=== PATIENT | female | born 1955 | race Caucasian/White ===

== ENCOUNTER 2016-05-20 15:57 | Emergency (ER) | payer BC ==
[2016-05-20] MEDS ORDERED: Sucralfate TAB* 1 GM PO ONE (16:51)
[2016-05-20] MEDS ORDERED: Pantoprazole IV* 40 MG IV ONE (16:51)
[2016-05-20 17:03] LABS: Hematocrit 43 % (35-47); Hemoglobin 14.5 g/dl (12.0-16.0); Mean Corpuscular HGB Conc 33 g/dl (31-36); Mean Corpuscular Hemoglobin 29 pg (27-31); Mean Corpuscular Volume 88 fL (80-97); Mean Platelet Volume 9 um3 (7.4-10.4); Red Blood Count 4.96 10^6/ul (4.0-5.4); Red Cell Distribution Width 13 % (10.5-15); White Blood Count 7.6 10^3/ul (3.5-10.8)
[2016-05-20 17:16] LABS: Albumin 4.4 g/dL (3.2-5.2); BUN/Creatinine Ratio 19.5 (8-20); Calcium 9.7 mg/dL (8.6-10.3); EGFR African American 91.5 (>60); EGFR Non-African American 71.1 (>60); Globulin 2.9 g/dL (2-4); Potassium 3.5 mmol/L (3.5-5.0); Total Bilirubin 0.4 mg/dL (0.2-1.0); Total Protein 7.3 g/dL (6.4-8.9)
--- NOTE | 2016-05-20 17:51 | RAD ---
INDICATION: Chest pain. COMPARISON: Comparison is made with a prior study from January 19, 2009. TECHNIQUE: A portable view of the chest was obtained. FINDINGS: Cardiac and mediastinal contours appear to be within normal limits. The lungs are clear. No pleural effusion is seen. IMPRESSION: NO EVIDENCE FOR ACUTE DISEASE.
[2016-05-20 20:46] VITALS: BP 141/82
--- NOTE | 2016-05-22 00:44 | ED ---
Arabella Berg Matthew, scribed for Timoteo Lopez MD on 05/20/16 at 1642 . Abdominal Pain/Female - HPI Summary HPI Summary: A 61 y/o female presents to the ED with sudden epigastric abdominal pain since 14:30. The pain started while the patient was sitting. The pain is described as stabbing, radiated into the back, lasted for an hour, and rated 6/10 in severity initially and is now 3/10 in severity. The pain started gradually resolving during the ambulance ride to the hospital. The patient took Augmentin and ate a banana an hour prior to the episode. She took two TUMs without relief. The patient denies nausea, vomiting, diarrhea, dysuria, SOB, pedal edema , lightheaded, and fever. - History of Current Complaint Chief Complaint: EDAbdPain Stated Complaint: ABD PAIN Time Seen by Provider: 05/20/16 16:31 Hx Obtained From: Patient ?: No Timing: Constant Severity Initially: Moderate Severity Currently: Mild Pain Intensity: 3 Pain Scale Used: 0-10 Numeric Location: Epigastric Radiates: Yes Radiates to: Back Character: Sharp Alleviating Factor(s): Nothing Associated Signs and Symptoms: Positive: Back Pain. Negative: Fever, Urinary Symptoms, Nausea, Vomiting, Diarrhea Allergies/Adverse Reactions: Allergies Allergy/AdvReac Type Severity Reaction Status Date / Time No Known Allergies Allergy Verified 07/11/14 07:05 Home Medications: Home Medications Albuterol HFA INHALER* [Ventolin HFA Inhaler*] 2 puff INH .Q4-6H PRN 05/20/16 [ History Confirmed 05/20/16] Amoxicillin/Clavulanate TAB* [Augmentin TAB 875*] 875 mg PO BID 05/20/16 [ History Confirmed 05/20/16] DULoxetine DR CAP* [Cymbalta CAP*] 20 mg PO DAILY 05/20/16 [History Confirmed ] FLUoxetine CAP* [PROzac CAP*] 20 mg PO DAILY 05/20/16 [History Confirmed ] Gabapentin CAP(*) [Neurontin 100 mg CAP(*)] 200 mg PO BEDTIME 05/20/16 [History Confirmed 05/20/16] amLODIPine TAB* [Norvasc TAB*] 10 mg PO DAILY 05/20/16 [History Confirmed ] PMH/Surg Hx/FS Hx/Imm Hx Endocrine/Hematology History: Denies: Hx Diabetes Cardiovascular History: Reports: Hx Angina, Hx Hypertension, Hx Valvular Heart Disease Denies: Other Cardiovascular Problems/Disorders Respiratory History: Denies: Hx Asthma, Hx Chronic Obstructive Pulmonary Disease (COPD) Sensory History: Reports: Hx Cataracts - ROSS, Hx Contacts or Glasses - GLASSES Denies: Hx Hearing Aid Opthamlomology History: Reports: Hx Cataracts - ROSS, Hx Contacts or Glasses - GLASSES Neurological History: Denies: Other Neuro Impairments/Disorders Psychiatric History: Reports: Hx Anxiety - ON MEDS, Hx Depression - ON MEDS - Cancer History Hx Chemotherapy: No Hx Radiation Therapy: No - Surgical History Surgery Procedure, Year, and Place: LEFT KNEE, 2007, [facility] Hx Anesthesia Reactions: No Infectious Disease History: No Infectious Disease History: Denies: Traveled Outside the [place] in Last 30 Days - Family History Known Family History: Positive: Hypertension - EKG CHANGE DURING STRESS AT DR OFFICE - Social History Alcohol Use: Daily Alcohol Amount: 1-2 PER DAY Substance Use Type: Reports: None Smoking Status (MU): Former Smoker Type: Cigarettes Amount Used/How Often: 1.5 PACKS A DAY Have You Smoked in the Last Year: No Review of Systems Constitutional: Negative Eyes: Negative ENT: Negative Cardiovascular: Negative Respiratory: Negative Gastrointestinal: Negative Genitourinary: Negative Musculoskeletal: Negative Skin: Negative Neurological: Negative Psychological: Normal All Other Systems Reviewed And Are Negative: Yes Physical Exam Triage Information Reviewed: Yes Vital Signs On Initial Exam: Initial Vitals Temp Pulse Resp BP Pulse Ox 97.8 F 67 18 143/53 97 05/20/16 16:05 05/20/16 16:05 05/20/16 16:05 05/20/16 16:05 05/20/16 16:05 Vital Signs Reviewed: Yes Appearance: Positive: Well-Appearing, No Pain Distress, Obese Skin: Positive: Warm, Skin Color Reflects Adequate Perfusion, Dry Eyes: Positive: EOMI, SAURAV ENT: Positive: Normal ENT inspection Neck: Positive: Supple, Nontender Respiratory/Lung Sounds: Positive: Clear to Auscultation, Breath Sounds Present Cardiovascular: Positive: RRR Abdomen Description: Positive: Nontender, Soft Bowel Sounds: Positive: Present Musculoskeletal: Positive: Normal, Strength/ROM Intact Neurological: Positive: Normal, Sensory/Motor Intact, Alert, Oriented to Person Place, Time Psychiatric: Positive: Normal, Affect/Mood Appropriate - [place] Coma Scale Coma Scale Total: 15 Diagnostics - Vital Signs Vital Signs Temp Pulse Resp BP Pulse Ox 05/20/16 16:05 97.8 F 67 18 143/53 97 - Laboratory Lab Results: Lab Results 05/20/16 05/20/16 05/20/16 Range/Units 16:30 16:30 16:30 WBC 7.6 (3.5-10.8) 10^3/ul RBC 4.96 (4.0-5.4) 10^6/ul Hgb 14.5 (12.0-16.0) g/dl Hct 43 (35-47) % MCV 88 (80-97) fL MCH 29 (27-31) pg MCHC 33 (31-36) g/dl RDW 13 (10.5-15) % Plt Count 321 (150-450) 10^3/ul MPV 9 (7.4-10.4) um3 Neut % (Auto) 69.1 (38-83) % Lymph % (Auto) 22.5 L (25-47) % [place] % (Auto) 5.2 (1-9) % Eos % (Auto) 2.0 (0-6) % Baso % (Auto) 1.2 (0-2) % Absolute Neuts (auto) 5.2 (1.5-7.7) 10^3/ul Absolute Lymphs (auto) 1.7 (1.0-4.8) 10^3/ul Absolute Monos (auto) 0.4 (0-0.8) 10^3/ul Absolute Eos (auto) 0.2 (0-0.6) 10^3/ul Absolute Basos (auto) 0.1 (0-0.2) 10^3/ul Absolute Nucleated RBC 0 10^3/ul Nucleated RBC % 0 Sodium 135 (133-145) mmol/L Potassium 3.5 (3.5-5.0) mmol/L Chloride 102 (101-111) mmol/L Carbon Dioxide 27 (22-32) mmol/L Anion Gap 6 (2-11) mmol/L BUN 16 (6-24) mg/dL Creatinine 0.82 (0.51-0.95) mg/dL Est GFR ( Amer) 91.5 (>60) Est GFR (Non-Af Amer) 71.1 (>60) BUN/Creatinine Ratio 19.5 (8-20) Glucose 101 H (70-100) mg/dL Lactic Acid 1.0 (0.5-2.0) mmol/L Calcium 9.7 (8.6-10.3) mg/dL Total Bilirubin 0.40 (0.2-1.0) mg/dL AST 20 (13-39) U/L ALT 20 (7-52) U/L Alkaline Phosphatase 91 (34-104) U/L Troponin I 0.00 (<0.04) ng/mL Total Protein 7.3 (6.4-8.9) g/dL Albumin 4.4 (3.2-5.2) g/dL Globulin 2.9 (2-4) g/dL Albumin/Globulin Ratio 1.5 (1-3) Lipase 22 (11.0-82.0) U/L 05/20/16 Range/Units 20:45 WBC (3.5-10.8) 10^3/ul RBC (4.0-5.4) 10^6/ul Hgb (12.0-16.0) g/dl Hct (35-47) % MCV (80-97) fL MCH (27-31) pg MCHC (31-36) g/dl RDW (10.5-15) % Plt Count (150-450) 10^3/ul MPV (7.4-10.4) um3 Neut % (Auto) (38-83) % Lymph % (Auto) (25-47) % [place] % (Auto) (1-9) % Eos % (Auto) (0-6) % Baso % (Auto) (0-2) % Absolute Neuts (auto) (1.5-7.7) 10^3/ul Absolute Lymphs (auto) (1.0-4.8) 10^3/ul Absolute Monos (auto) (0-0.8) 10^3/ul Absolute Eos (auto) (0-0.6) 10^3/ul Absolute Basos (auto) (0-0.2) 10^3/ul Absolute Nucleated RBC 10^3/ul Nucleated RBC % Sodium (133-145) mmol/L Potassium (3.5-5.0) mmol/L Chloride (101-111) mmol/L Carbon Dioxide (22-32) mmol/L Anion Gap (2-11) mmol/L BUN (6-24) mg/dL Creatinine (0.51-0.95) mg/dL Est GFR ( Amer) (>60) Est GFR (Non-Af Amer) (>60) BUN/Creatinine Ratio (8-20) Glucose (70-100) mg/dL Lactic Acid (0.5-2.0) mmol/L Calcium (8.6-10.3) mg/dL Total Bilirubin (0.2-1.0) mg/dL AST (13-39) U/L ALT (7-52) U/L Alkaline Phosphatase (34-104) U/L Troponin I 0.01 (<0.04) ng/mL Total Protein (6.4-8.9) g/dL Albumin (3.2-5.2) g/dL Globulin (2-4) g/dL Albumin/Globulin Ratio (1-3) Lipase (11.0-82.0) U/L Result Diagrams: 05/20/16 16:30 05/20/16 16:30 Lab Statement: Any lab studies that have been ordered have been reviewed, and results considered in the medical decision making process. - Radiology CXR Xray Interpretation: No Acute Changes - IMPRESSION: NO EVIDENCE FOR ACUTE DISEASE. Radiology Interpretation Completed By: Radiologist Abdominal Pain Fem Course/Dx - Course Course Of Treatment: Kirstie Lares presented with the sudden onset of an anterior lower chest / epigastric pain that lasted about an hour and resolved gradually. Her W/U here included 2 troponins and was negative. It is unclear whether this was GI or not but she remained stable and was D/C'd. - Diagnoses Provider Diagnoses: Chest pain Discharge - Discharge Plan Condition: Stable Disposition: HOME Patient Education Materials: Chest Pain (ED) Referrals: Waleska Copeland NP [Primary Care Provider] - 3 Days Additional Instructions: Please follow-up with your primary care physician in 3 days. The documentation as recorded by the Arabella curtsi Matthew accurately reflects the service I personally performed and the decisions made by me, Timoteo Lopez MD.
== END 2016-05-20 21:02 | disposition home or self-care (01) ==
LOC: ED 15:57
DX: R07.9 Chest pain, unspecified (principal)
CPT/HCPCS: 36415; 71010; 80053; 83605; 83690; 84484; 85025; 96374; 99283; A9270-GY

== ENCOUNTER 2017-08-24 21:56 | Emergency (ER) | payer BC ==
[2017-08-25] MEDS ORDERED: NS 0.9% 1000 ML* 1,000 ML IV ONE (01:15)
[2017-08-25] MEDS ORDERED: Pantoprazole IV* 40 MG IV ONE (01:15)
[2017-08-25 02:07] LABS: ABS Basophils 0.1 10^3/ul (0-0.2); ABS Eosinophils 0.2 10^3/ul (0-0.6); ABS Lymphocytes 2.2 10^3/ul (1.0-4.8); ABS Monocytes 0.4 10^3/ul (0-0.8); ABS Neutrophils 5.4 10^3/ul (1.5-7.7); ABS Nucleated RBC 0 10^3/ul; Eosinophil % 1.9 % (0-6); Hematocrit 40 % (35-47); Hemoglobin 13.5 g/dl (12.0-16.0); Lymphocyte % 26.6 % (25-47); Mean Corpuscular HGB Conc 34 g/dl (31-36); Mean Corpuscular Hemoglobin 30 pg (27-31); Mean Corpuscular Volume 89 fL (80-97); Nucleated Red Blood Cells % 0.1; Platelet Count 284 10^3/ul (150-450); Red Blood Count 4.43 10^6/ul (4.0-5.4); Red Cell Distribution Width 14 % (10.5-15); White Blood Count 8.2 10^3/ul (3.5-10.8)
[2017-08-25 02:26] LABS: EGFR Non-African American 62.1 (>60)
[2017-08-25] MEDS ORDERED: Iohexol 300* (CONTRAST) 10 ML SDV IV ONE (02:42)
[2017-08-25 02:46] LABS: Urine Appearance Clear; Urine Blood Negative (Negative); Urine Color Straw; Urine Ketones Negative (Negative); Urine Protein Negative (Negative); Urine Specific Gravity 1.006 (1.010-1.030); Urine Urobilinogen Negative (Negative)
[2017-08-25 03:01] LABS: INR 0.79 (0.77-1.02)
[2017-08-25 04:43] VITALS: BP 161/71
--- NOTE | 2017-08-25 06:50 | ED ---
Naina Berg Rebecca, scribed for Baldo Cota MD on 08/25/17 at 0102 . Abdominal Pain/Female - HPI Summary HPI Summary: Pt is a 62 y/o F who presents to ED c/o abdominal pain. Sx began approximately 30 minutes after eating dinner tonight. Pain is in the epigastric region with radiation to the back. Pain has improved since being in the ED, ranked 5/10 on triage, though improved and characterized as dull. Pain has been present intermittently for the past 1-2 months, gradually worsening. Additionally noted feeling "flushed" and diaphoretic at onset of pain. Denies N/V/D. - History of Current Complaint Chief Complaint: EDAbdPain Stated Complaint: CHEST PAIN Time Seen by Provider: 08/25/17 00:49 Hx Obtained From: Patient Onset/Duration: Still Present Timing: Intermittent Episode Lasting Severity Currently: Moderate Pain Intensity: 5 Pain Scale Used: 0-10 Numeric Location: Epigastric Radiates: Yes Radiates to: Back Aggravating Factor(s): Food Alleviating Factor(s): Nothing Associated Signs and Symptoms: Negative: Nausea, Vomiting, Diarrhea Allergies/Adverse Reactions: Allergies Allergy/AdvReac Type Severity Reaction Status Date / Time No Known Allergies Allergy Verified 07/11/14 07:05 PMH/Surg Hx/FS Hx/Imm Hx Endocrine/Hematology History: Denies: Hx Diabetes Cardiovascular History: Reports: Hx Angina, Hx Hypertension, Hx Valvular Heart Disease Denies: Other Cardiovascular Problems/Disorders Respiratory History: Denies: Hx Asthma, Hx Chronic Obstructive Pulmonary Disease (COPD) Sensory History: Reports: Hx Cataracts - ROSS, Hx Contacts or Glasses - GLASSES Denies: Hx Hearing Aid Opthamlomology History: Reports: Hx Cataracts - ROSS, Hx Contacts or Glasses - GLASSES Neurological History: Denies: Other Neuro Impairments/Disorders Psychiatric History: Reports: Hx Anxiety - ON MEDS, Hx Depression - ON MEDS - Cancer History Hx Chemotherapy: No Hx Radiation Therapy: No - Surgical History Surgery Procedure, Year, and Place: LEFT KNEE, 2007, [facility] Hx Anesthesia Reactions: No Infectious Disease History: No Infectious Disease History: Denies: Traveled Outside the [place] in Last 30 Days - Family History Known Family History: Positive: Hypertension - EKG CHANGE DURING STRESS AT DR OFFICE - Social History Alcohol Use: Daily Alcohol Amount: 1-2 PER DAY Substance Use Type: Reports: None Smoking Status (MU): Former Smoker Type: Cigarettes Amount Used/How Often: 1.5 PACKS A DAY Have You Smoked in the Last Year: No Review of Systems Positive: Skin Diaphoresis, Other - "flushed" Positive: Abdominal Pain. Negative: Vomiting, Diarrhea, Nausea All Other Systems Reviewed And Are Negative: Yes Physical Exam - Summary Physical Exam Summary: VITAL SIGNS: Reviewed. GENERAL: ~Patient is a well-developed and nourished female who is lying comfortable in the stretcher. Patient is not in any acute respiratory distress. HEAD AND FACE: No signs of trauma. No ecchymosis, hematomas or skull depressions. No sinus tenderness. EYES: PERRLA, EOMI x 2, No injected conjunctiva, no nystagmus. EARS: Hearing grossly intact. Ear canals and tympanic membranes are within normal limits. MOUTH: Oropharynx within normal limits. NECK: Supple, trachea is midline, no adenopathy, no JVD, no carotid bruit, no c- spine tenderness, neck with full ROM. CHEST: Symmetric, no tenderness at palpation LUNGS: Clear to auscultation bilaterally. No wheezing or crackles. CVS: Regular rate and rhythm, S1 and S2 present, no murmurs or gallops appreciated. ABDOMEN: Soft, non-tender. No signs of distention. No rebound no guarding, and no masses palpated. Bowel sounds are hyperactive. EXTREMITIES: FROM in all major joints, no edema, no cyanosis or clubbing. NEURO: Alert and oriented x 3. No acute neurological deficits. Speech is normal and follows commands. SKIN: Dry and warm Triage Information Reviewed: Yes Vital Signs On Initial Exam: Initial Vitals Temp Pulse Resp BP Pulse Ox 97.7 F 55 20 185/79 99 08/24/17 22:06 08/24/17 22:06 08/24/17 22:06 08/24/17 22:06 08/24/17 22:06 Vital Signs Reviewed: Yes Diagnostics - Vital Signs Vital Signs Temp Pulse Resp BP Pulse Ox 08/24/17 22:06 97.7 F 55 20 185/79 99 - Laboratory Result Diagrams: 08/25/17 01:59 08/25/17 01:59 Lab Statement: Any lab studies that have been ordered have been reviewed, and results considered in the medical decision making process. - CT CT Abd/Pel CT Interpretation Completed By: Radiologist - No evidence of acute pathology. 6 mm left lower lobe nodule should be compared to prior examinations to demonstrate stability or a 6-[address] could be obtained. ED physician reviewed this radiology report. Pending official report - EKG 0120 Cardiac Rate: Bradycardia - 47 bpm EKG Rhythm: Sinus Bradycardia EKG Interpretation: Nonspecific T wave inversions in the inferior leads EKG Comparison: No Significant Change - From EKG on 09/22/2012 Re-Evaluation - Re-Evaluation First Eval Re-Evaluation Time: 04:16 Comment: Advised the pt of the nodule and that she should follow up with her PCP. Abdominal Pain Fem Course/Dx - Course Course Of Treatment: Pt is a 62 y/o F who presents to ED c/o epigastric abdominal pain with radiation to the back since approximately 30 minutes after eating dinner tonight. Improved since being in the ED, ranked 5/10 on triage, though improved and characterized as dull. Pain has been present intermittently for the past 1-2 months, gradually worsening. Additionally noted feeling "flushed" and diaphoretic at onset of pain. Denies N/V/D. EKG is sinus ayana with nons-epecific T wave inversions in the inferior leads. CT Abd/Pel reveals a lung nodule and no acute pathology. Blood work and UA were done. In the ED course, pt was given fluids and protonix. She will be D/C to home with Dx of abdominal pain and lung nodrule with instructions to follow up with her PCP. - Diagnoses Provider Diagnoses: Abdominal pain, Lung nodule Discharge - Sign-Out/Discharge Documenting (check all that apply): Discharge/Admit/Transfer - Discharge - Discharge Plan Condition: Stable Disposition: HOME Patient Education Materials: Acute Abdominal Pain (ED) Referrals: Norman Reyes, [facility] [facility] [Primary Care Provider] - 3 Days Additional Instructions: RETURN TO EMERGENCY DEPARTMENT FOR ANY NEW OR WORSENING SYMPTOMS. The documentation as recorded by the Naina curtis Rebecca accurately reflects the service I personally performed and the decisions made by , Baldo Cota MD.
--- NOTE | 2017-08-25 08:50 | RAD ---
CLINICAL HISTORY: Epigastric pain COMPARISON: CT urogram dated October 05, 2007 TECHNIQUE: Contrast enhanced CT examination of the abdomen and pelvis from the lung bases through the initial tuberosities. The patient received 101 mL Omnipaque 350 intravenously prior to imaging. FINDINGS: VISUALIZED LUNG BASES: At the left lower lobe there is a subpleural 6 mm nodule that is unchanged since the October 05, 2007 CT examination. Otherwise the visualized lung bases are grossly clear. There is no pleural effusion. ABDOMEN AND PELVIS: The liver, spleen, pancreas and adrenal glands are grossly normal in appearance. The gallbladder is normal. The kidneys are normal in appearance without focal mass, calcification or signs of hydronephrosis. Evaluation of the gastrointestinal tract is limited without oral contrast. The small and large bowel are not distended. The patient's normal appendix is identified in the right lower quadrant measuring 6 mm in diameter with gas partially filling the lumen (coronal image 48). There is no gross retroperitoneal or mesenteric lymphadenopathy. The pelvic viscera is normal in appearance. There is coarse atherosclerotic calcification of the lower abdominal aorta extending into the bilateral common iliac arteries. Degenerative changes include multilevel loss of intervertebral disc height involving the lower thoracic and lumbar spine.There are no sinister bone lesions. IMPRESSION: Chronic and degenerative changes as described in the body the report, none of which would likely correspond to the patient's current clinical presentation.
== END 2017-08-25 04:42 | disposition home or self-care (01) ==
LOC: ED 21:56
DX: R10.13 Epigastric pain (principal); R91.1 Solitary pulmonary nodule; Z87.891 Personal history of nicotine dependence
CPT/HCPCS: 36415; 74177; 80053; 81003; 81015; 82150; 83690; 83735; 84484; 85025; 85610; 86140; 87086; 93005; 96374; 99285; Q9967